=== PATIENT | female | born 1965 | race Caucasian/White ===

== ENCOUNTER 2018-08-21 05:06 | Emergency (ER) | payer OTHER ==
--- NOTE | 2018-08-21 07:35 | EDPHYS ---
Physician Documentation [facility] Name: Nora Irizarry Age: 52 yrs Sex: Female : 1965 Arrival Date: 08/21/2018 Time: 05:10 Bed 8 Private MD: Bashir Abarca ED Physician Elias Slade HPI: 08/21 06:25 This 52 yrs old Female presents to ER via Ambulatory with complaints of Fall pm1 Injury, Arm Injury. 06:25 Details of fall: The patient fell from an upright position, while walking. Onset: The pm1 symptoms/episode began/occurred just prior to arrival. Associated injuries: The patient sustained left elbow. The patient has not experienced similar symptoms in the past. The patient has not recently seen a physician. Patient was walking down stairs with her small dog in her arms. 4th stair from the bottom, she tripped and landed on her left elbow and then landed on her bottom. No head injury, headache, neck pain, LOC, or vomiting. 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 - Social history:: Smoking status: Patient/guardian denies using tobacco, Patient uses alcohol, occasionally. Patient/guardian denies using street drugs, IV drugs. - Ebola Screening: : Patient negative for fever greater than or equal to 101.5 degrees Fahrenheit, and additional compatible Ebola Virus Disease symptoms Patient denies exposure to infectious person Patient denies travel to an Ebola-affected area in the 21 days before illness onset. ROS: 06:44 Constitutional: Negative for fever, chills, and weight loss, Eyes: Negative for injury, pm1 pain, redness, and discharge, ENT: Negative for injury, pain, and discharge, Neck: Negative for injury, pain, and swelling, Cardiovascular: Negative for chest pain, palpitations, and edema, Respiratory: Negative for shortness of breath, cough, wheezing, and pleuritic chest pain, Abdomen/GI: Negative for abdominal pain, nausea, vomiting, diarrhea, and constipation, Back: Negative for injury and pain, : Negative for injury, bleeding, discharge, and swelling. 06:44 Skin: Negative for injury, rash, and discoloration, Neuro: Negative for headache, weakness, numbness, tingling, and seizure. 06:44 MS/extremity: Positive for pain, of the left elbow, Negative for decreased range of motion, deformity. Exam: 06:44 Constitutional: This is a well developed, well nourished patient who is awake, alert, pm1 and in no acute distress. Head/Face: Normocephalic, atraumatic. Eyes: Pupils equal round and reactive to light, extra-ocular motions intact. Lids and lashes normal. Conjunctiva and sclera are non-icteric and not injected. Cornea within normal limits. Periorbital areas with no swelling, redness, or edema. ENT: Nares patent. No nasal discharge, no septal abnormalities noted. Tympanic membranes are normal and external auditory canals are clear. Oropharynx with no redness, swelling, or masses, exudates, or evidence of obstruction, uvula midline. Mucous membranes moist. Neck: Trachea midline, no thyromegaly or masses palpated, and no cervical lymphadenopathy. Supple, full range of motion without nuchal rigidity, or vertebral point tenderness. No Meningismus. Chest/axilla: Normal chest wall appearance and motion. Nontender with no deformity. No lesions are appreciated. Cardiovascular: Regular rate and rhythm with a normal S1 and S2. No gallops, murmurs, or rubs. No pulse deficits. Respiratory: Lungs have equal breath sounds bilaterally, clear to auscultation and percussion. No rales, rhonchi or wheezes noted. No increased work of breathing, no retractions or nasal flaring. Abdomen/GI: Soft, non-tender, with normal bowel sounds. No distension or tympany. No guarding or rebound. No evidence of tenderness throughout. Back: No spinal tenderness. No costovertebral tenderness. Full range of motion. Skin: Warm, dry with normal turgor. Normal color with no rashes, no lesions, and no evidence of cellulitis. 06:44 Musculoskeletal/extremity: Extremities: grossly normal except: noted in the left elbow: tenderness, There is no evidence of abrasion, contusion, deformity, ecchymosis, erythema, laceration, swelling, patient able to pronate and supinate without difficulty, reports mild pain to tricep with movement. 06:44 Neuro: Orientation: is normal, Motor: is normal, moves all fours, strength is normal, strength is 5/5 in all extremities, Sensation: is normal, no obvious gross deficits. Vital Signs: 05:28 BP 114 / 51; Pulse 77; Resp 18; Temp 98.6(O); Pulse Ox 99% on R/A; Weight 52.16 kg (R); ao Height 5 ft. 2 in. (157.48 cm) (R); Pain 6/10; 07:00 BP 109 / 54; Pulse 71; Resp 14; Pulse Ox 100% ; bp 05:28 Body Mass Index 21.03 (52.16 kg, 157.48 cm) ao [place] Coma Score: 05:28 Eye Response: spontaneous(4). Verbal Response: oriented(5). Motor Response: obeys ao commands(6). Total: 15. Trauma Score (Adult): 05:28 Eye Response: spontaneous(1); Verbal Response: oriented(1); Motor Response: obeys ao commands(2); Systolic BP: > 89 mm Hg(4); Respiratory Rate: 10 to 29 per min(4); Rush Score: 15; Trauma Score: 12 MDM: 06:03 Patient medically screened. pm1 06:24 ED course: Patient offered pain medication, patient refused. Feels fine at the moment. pm1 06:51 Data reviewed: vital signs. Data interpreted: Pulse oximetry: on room air is 99 %. pm1 Interpretation: normal. 07:16 Differential diagnosis: contusion, fracture, sprain, strain, to left elbow. pm1 07:30 Counseling: I had a detailed discussion with the patient and/or guardian regarding: the pm1 historical points, exam findings, and any diagnostic results supporting the discharge/admit diagnosis, radiology results, the need for outpatient follow up, to return to the emergency department if symptoms worsen or persist or if there are any questions or concerns that arise at home. 08/21 05:53 Order name: XRAY Elbow LEFT 2 view; Complete Time: 08:12 ao 08/21 05:53 Order name: XRAY Shoulder LEFT 2 view; Complete Time: 08:12 ao 08/21 07:10 Order name: Sling; Complete Time: 07:34 pm1 Administered Medications: 07:39 CANCELLED (Patient Refused): [place] 5 mg-325 mg 1 tabs PO once pm1 07:50 Drug: Ibuprofen 600 mg Route: PO; bp 07:55 Follow up: Response: Medication administered at discharge. bp 07:50 Drug: Flexeril 10 mg Route: PO; bp 07:56 Follow up: Response: No adverse reaction bp Disposition: 08/21/18 07:34 Discharged to Home. Impression: Pain in left elbow. - Condition is Stable. - Discharge Instructions: Elbow Contusion, How to Use a Sling. - Prescriptions for Cyclobenzaprine 10 mg Oral Tablet - take 1 tablet by ORAL route every 8 hours As needed; 30 tablet. Diclofenac Sodium 75 mg Oral Tablet Sustained Release - take 1 tablet by ORAL route 2 times per day; 30 tablet. - Medication Reconciliation Form, Thank You Letter, Prescription Opioid Use form. - Follow up: Emergency Department; When: As needed; Reason: Worsening of condition. Follow up: Private Physician; When: 2 - 3 days; Reason: Recheck today's complaints, Continuance of care, Re-evaluation by your physician. - Problem is new. - Symptoms have improved. Signatures: Dispatcher [employer] EDCT Kristian Jacobsen RN RN Florian Ramirez NP SENIOR INTERNAL AUDITOR pm1 Bashir Haywood RN RN bp Corrections: (The following items were deleted from the chart) 07:39 07:29 [place] 5 mg-325 mg 1 tabs PO once ordered. pm1 pm1 07:59 07:34 08/21/2018 07:34 Discharged to Home. Impression: Pain in left elbow. Condition is bp Stable. Forms are Medication Reconciliation Form, Thank You Letter, Antibiotic Education, Prescription Opioid Use. Follow up: Emergency Department; When: As needed; Reason: Worsening of condition. Follow up: Private Physician; When: 2 - 3 days; Reason: Recheck today's complaints, Continuance of care, Re-evaluation by your physician. Problem is new. Symptoms have improved. pm1
--- NOTE | 2018-08-21 07:35 | ER ---
Nurse's Notes [facility] Name: Nora Irizarry Age: 52 yrs Sex: Female : 1965 Arrival Date: 08/21/2018 Time: 05:10 Bed 8 Private MD: Bashir Abarca Diagnosis: Pain in left elbow Presentation: 08/21 05:25 Presenting complaint: Patient states: Was just about to walk her dog and felt down from ao the stairs. Patient reports falling about four steps and hitting her left elbow. Care prior to arrival: None. Mechanism of Injury: Fall down 5 steps. Trauma event details: Injury occurred in the [facility]. 05:25 Acuity: RICKY 3 ao 05:25 Method Of Arrival: Ambulatory ao 05:32 Transition of care: patient was not received from another setting of care. Onset of ao symptoms was August 21, 2018 at 04:30. Risk Assessment: Do you want to hurt yourself or someone else? Patient reports no desire to harm self or others. Initial Sepsis Screen: Does the patient meet any 2 criteria? No. Patient's initial sepsis screen is negative. Does the patient have a suspected source of infection? No. Patient's initial sepsis screen is negative. Triage Assessment: 05:30 General: Appears in no apparent distress. uncomfortable, Behavior is calm, cooperative, ao appropriate for age. Pain: Complains of pain in left arm Pain currently is 7 out of 10 on a pain scale. EENT: No signs and/or symptoms were reported regarding the EENT system. Neuro: Level of Consciousness is awake, alert, obeys commands, Oriented to person, place, time, situation, Appropriate for age Moves all extremities. Full function Speech is normal, Facial symmetry appears normal, Intact. Cardiovascular: Capillary refill < 3 seconds Patient's skin is warm and dry. Respiratory: Airway is patent Respiratory effort is even, unlabored, Respiratory pattern is regular, agonal. GI: Abdomen is non-distended. : No signs and/or symptoms were reported regarding the genitourinary system. Derm: Skin is intact, Skin is pink, warm \T\ dry. normal, Skin temperature is warm. Musculoskeletal: Range of motion: intact in all extremities, intact in left shoulder, left elbow and left wrist. Injury Description: Fall. 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 - Social history:: Smoking status: Patient/guardian denies using tobacco, Patient uses alcohol, occasionally. Patient/guardian denies using street drugs, IV drugs. - Ebola Screening: : Patient negative for fever greater than or equal to 101.5 degrees Fahrenheit, and additional compatible Ebola Virus Disease symptoms Patient denies exposure to infectious person Patient denies travel to an Ebola-affected area in the 21 days before illness onset. Screenin:33 Abuse screen: Denies threats or abuse. Denies injuries from another. Nutritional ao screening: No deficits noted. Tuberculosis screening: No symptoms or risk factors identified. Fall Risk Fall in past 12 months (25 points). No secondary diagnosis (0 pts). No IV (0 pts). Ambulatory Aid- None/Bed Rest/Nurse Assist (0 pts). Gait- Normal/Bed Rest/Wheelchair (0 pts) Mental Status- Oriented to own ability (0 pts). Total Emery Fall Scale indicates No Risk (0-24 pts). Primary Survey: 05:32 NO uncontrolled hemorrhage observed. Breathing/Chest: Respiratory pattern: regular, ao Respiratory effort: spontaneous, Breath sounds: clear, bilaterally. Chest inspection: symmetrical rise and fall of the chest. Circulation: Cardiac rhythm: sinus rhythm Heart tones present. Pulses: palpable . Skin color: pink, Skin temperature: warm. Disability Alert. Exposure/Environment: All clothing and personal items were removed. Forensic evidence collection is not deemed to be indicated at this time. Items placed in patient belonging bag. Reassessment. 05:34 Reassessment Breathing/Chest. ao Secondary Survey: 07:00 HEENT: No deficits noted. Gastrointestinal: No deficits noted. : No deficits noted. bp Musculoskeletal: LEFT ELBOW. Assessment: 05:34 General: See triage assessment. ao 07:00 Reassessment: RECD REPORT FROM STACI PANDYA. 52YO WF S/P FALL ON STAIRS WITH LEFT ELBOW bp PAIN. XRAY RESULTS PENDING. NO OBVIOUS DEFORMITY. Vital Signs: 05:28 BP 114 / 51; Pulse 77; Resp 18; Temp 98.6(O); Pulse Ox 99% on R/A; Weight 52.16 kg (R); ao Height 5 ft. 2 in. (157.48 cm) (R); Pain 6/10; 07:00 BP 109 / 54; Pulse 71; Resp 14; Pulse Ox 100% ; bp 05:28 Body Mass Index 21.03 (52.16 kg, 157.48 cm) ao [place] Coma Score: 05:28 Eye Response: spontaneous(4). Verbal Response: oriented(5). Motor Response: obeys ao commands(6). Total: 15. Trauma Score (Adult): 05:28 Eye Response: spontaneous(1); Verbal Response: oriented(1); Motor Response: obeys ao commands(2); Systolic BP: > 89 mm Hg(4); Respiratory Rate: 10 to 29 per min(4); Rush Score: 15; Trauma Score: 12 ED Course: 05:10 Patient arrived in ED. es 05:10 Bashir Abarca MD is Private Physician. es 05:25 Staci Jacobsen RN is Primary Nurse. ao 05:28 Triage completed. ao 05:30 Arm band placed on right wrist. Patient placed in an exam room, on a stretcher, on ao pulse oximetry, Patient notified of wait time. 05:33 Patient has correct armband on for positive identification. Pulse ox on. NIBP on. ao 05:33 Patient maintains SpO2 saturation greater than 95% on room air. ao 05:33 Thermoregulation: warm blanket given to patient. ao 06:02 Florian Manjarrez NP is PHCP. pm1 06:02 Elias Slade MD is Attending Physician. pm1 06:59 X-ray completed. Portable x-ray completed in exam room. Patient tolerated procedure jb2 well. 07:04 XRAY Elbow LEFT 2 view In Process Unspecified. EDMS 07:04 XRAY Shoulder LEFT 2 view In Process Unspecified. EDMS 07:06 Report given to Rony RN. ao 07:34 Sling applied to left arm. jb1 07:58 No provider procedures requiring assistance completed. Patient did not have IV access bp during this emergency room visit. Administered Medications: 07:39 CANCELLED (Patient Refused): [place] 5 mg-325 mg 1 tabs PO once pm1 07:50 Drug: Ibuprofen 600 mg Route: PO; bp 07:55 Follow up: Response: Medication administered at discharge. bp 07:50 Drug: Flexeril 10 mg Route: PO; bp 07:56 Follow up: Response: No adverse reaction bp Intake: 07:00 PO: 0ml; Total: 0ml. bp Output: 07:00 Urine: 0ml; Total: 0ml. bp Outcome: 07:34 Discharge ordered by MD. pm1 07:57 Discharged to home ambulatory, with family. bp 07:57 Condition: stable 07:57 Patient's length of stay was not longer than 2 hours. 07:58 Instructed on discharge instructions, follow up and referral plans. medication usage. bp 07:59 Patient left the ED. bp Signatures: Dispatcher [employer] EDMS Bayron Ramirez jb1 Lianne Avila Jesse jb2 Staci Jacobsen, MUMTAZ RN Flroian Ramirez, JAVY MOTOR BOSS pm1 Bashir Haywood, RN RN bp
[2018-08-21] MEDS ORDERED: CYCLOBENZAPRINE 10 MG TAB ONE (07:57)
[2018-08-21] MEDS ORDERED: IBUPROFEN 200 MG TAB PO ONE (07:57)
--- NOTE | 2018-08-21 08:10 | RAD REPORT ---
EXAM DESCRIPTION: RAD - Elbow Left 2 View - 08/21/2018 7:04 am CLINICAL HISTORY: Fall, elbow pain COMPARISON: None. FINDINGS: No fracture is identified and no elevated posterior fat pad. There is no dislocation or periosteal reaction noted. No foreign body or other soft tissue abnormalit y. IMPRESSION: Negative left elbow examination.
--- NOTE | 2018-08-21 08:11 | RAD REPORT ---
EXAM DESCRIPTION: RAD - Shoulder Left 2 View - 08/21/2018 7:04 am CLINICAL HISTORY: Fall, shoulder pain COMPARISON: December 2013 TECHNIQUE: Internal and external rotation views of the left shoulder were obtained. FINDINGS: There is no fracture or dislocation. AC joint is normal in appearance. No acute or suspici ous findings. IMPRESSION: Negative two-view left shoulder examination.
== END 2018-08-21 07:59 | disposition home or self-care (01) ==
LOC: ER 05:06
DX: M25.522 Pain in left elbow (principal)
CPT/HCPCS: 99284

== ENCOUNTER 2023-04-10 10:42 | Emergency (ER) | payer OTHER ==
--- OUTSIDE RECORDS SUMMARY | 2023-04-10 10:45 | XMS REPORT | Continuity of Care Document ---
:1965 Author Organization [facility] t Address [address] [place] [address] Care Team Providers Name Role Phone PCP, PATIENT DOES NOT HAVE A Primary Care Physician UnavailLATOYA Lai Attending Clinician Unavailable Anastacio Reeder MD Attending Clinician Judd Lopez MD Attending Clinician Kenna Gonzales Attending Clinician Unavailable Silvina Acosta Attending Clinician Unknown, Attending Attending Clinician Unavailable SILVINA PARTIDA Attending Clinician Unavailable UNKNOWN, ATTENDING Attending Clinician Unavailable Payers Payer Name Policy Type Policy Number Effective Date Expiration Date Liyah hammond [employer] [id number] 2019 2019 00:00:00 00:00:00 [employer]-90 [id number] 2022 DEGREE BENEFITS 00:00:00 [facility] [id number] 2021 00:00:00 Problems Condition Condition Condition Status Onset Resolution Last Treating Co mments Source Name Details Category Date Date Treatment Clinician Date No known No known Disease Unive rs active active ity of problems problems [facility] Allergies, Adverse Reactions, Alerts Allergy Allergy Status Severity Reaction(s) Onset Inactive Treating Comm ents Source Name Type Date Date Clinician NO KNOWN Drug Active Univers ALLERGIE Class ity of S [facility] Social History Social Habit Start Date Stop Date Quantity Comments Source Sexual orientation 2022-10-17 Heterosexual Meth odist 20:58:34 (finding) Hospital History [facility] Health Alcohol Frequency History [facility] Health Alcohol Std Drinks [facility] History of Social 2022-11-27 2022-11-[address] function 00:00:00 00:00:00 Hospital Exposure to 2022-02-05 2022-02-15 Not sure [facility] SARS-CoV-2 (event) 00:00:00 14:25:00 Tobacco use and 2022-02-15 2022-02-15 Smokeless tobacco [facility] exposure 00:00:00 00:00:00 non-user Alcohol intake 2022-02-15 2022-02-15 .14 /d [facility] 00:00:00 00:00:00 Alcohol Comment 2022-02-15 2022-02-15 three drinks a year [facility] 00:00:00 00:00:00 Sex Ass[birth year] At [birth year] F Religion 00:00:00 00:00:00 Hospital Smoking Status Start Date Stop Date Source Tobacco smoking consumption unknown [facility] Never smoked tobacco [facility] Medications Ordered Filled Start Stop Current Ordering Indication Dosage Frequency Signature Comments Components Source Medication Medication Date Date Medication? Clinician (SIG) Name Name montelukast Yes montelukas [facility] (SINGULAIR) 11-[address] 10 mg 10:00: tablet [facility]osp[facility] tablet 02 l albuterol Yes ProAir Method i sulfate 11-[address] (ProAir 10:00: 90 [facility]ospita RespiClick) 02 mcg/actuat l 90 ion breath mcg/actuati activated on aerosol powdr breath activated Fluticasone Yes 1{puff} QD Inhale 1 [facility] -Umeclidin- 826 puff 1 Health Vilant 16:53: (one) time (Trelegy 14 each day. Ellipta) 100-62.5-25 MCG/INH aerosol powder ALPRAZolam Yes .5mg Q.5D Take 0.5 UT (Xanax) 0.5 8-26 mg by Health MG tablet 16:50: mouth 2 25 (two) times a day if needed. codeine-gua 2021- No 4647 5mL Take 5 mL Univers ifenesin 07-01 by mouth ity of 10-100 mg/5 00:00: 05:59 every 6 [place] mL oral 00 :00 (six) Medical solution hours as Branch needed for Cough for up to 7 days. Indication s: acute pain Vital Signs Vital Name Observation Time Observation Value Comments Source Systolic blood 2022-02-15 21:43:00 115 mm[Hg] [facility] pressure Diastolic blood 2022-02-15 21:43:00 69 mm[Hg] [facility] Heart rate 2022-02-15 21:43:00 50 /min [facility] Respiratory rate 2022-02-15 21:43:00 16 /min [facility] Body height 2022-02-15 21:43:00 157.5 cm [facility] Body weight 2022-02-15 21:43:00 53.615 kg [facility] BMI 2022-02-15 21:43:00 21.62 kg/m2 [facility] Systolic blood 2021-07-01 20:09:00 122 mm[Hg] [facility] Diastolic blood 2021-07-01 20:09:00 79 mm[Hg] Unive [facility] Heart rate 2021-07-01 20:09:00 83 /min [facility] Body temperature 2021-07-01 20:09:00 37.17 [facility] Respiratory rate 2021-07-01 20:09:00 18 /min [facility] Body height 2021-07-01 20:09:00 157.5 cm [facility] Body weight 2021-07-01 20:09:00 53.978 kg [facility] BMI 2021-07-01 20:09:00 21.77 kg/m2 [facility] Oxygen saturation in 2021-07-01 20:09:00 96 /min [facility] Arterial blood by [facility] Pulse oximetry Branch Procedures Procedure Date / Time Performing Clinician Source Performed XR FINGER 2+ VW BILATERAL 2022-11-27 14:59:27 Anastacio Reeder [facility] MI ARTHROCENTESIS 2022-11-27 14:40:00 Anastacio Reeder [facility] ASPIR&/INJ INTERM JT/BURS W/O US CHG FLUOROSCOPIC GUIDANCE 2022-11-27 14:40:00 Anastacio Reeder [facility] NEEDLE PLACEMENT ADD ON ECG 12-LEAD 2022-02-15 21:46:00 Judd Lopez [facility] Plan of Care Planned Activity Planned Date Details Comments Source Future Scheduled 2023-04-10 Screening for [facility] Test 10:44:42 malignant neoplasm of colon (procedure) [code = 043721211] Future Scheduled 2023-04-10 Screening for [facility] Test 10:44:42 malignant neoplasm of colon (procedure) [code = 319777655] Future Scheduled 2023-04-10 Screening for [facility] Test 10:44:42 malignant neoplasm of colon (procedure) [code = [id number]] Future Scheduled 2023-04-10 COVID-19 VACCINE [facility] Test 10:44:42 (#1) [code = COVID-19 VACCINE (#1)] Future Scheduled 2023-04-10 Hepatitis C [facility] ospital Test 10:44:42 screening (procedure) [code = 139105447] Future Scheduled 2023-04-10 Screening for [facility] Test 10:44:42 malignant neoplasm of cervix (procedure) [code = 286781372] Future Scheduled 2023-04-10 BREAST CANCER [facility] Test 10:44:42 SCREENING [code = BREAST CANCER SCREENING] Future Scheduled 2023-04-10 Screening for [facility] Test 10:44:42 malignant neoplasm of colon (procedure) [code = 566437005] Future Scheduled 2023-04-10 Screening for [facility] Test 10:44:42 malignant neoplasm of colon (procedure) [code = 440127137] Future Scheduled 2023-04-10 SHINGLES VACCINES Method [facility] Hospital Test 10:44:42 (1 of 2) [code = SHINGLES VACCINES (1 of 2)] Future Scheduled 2023-04-10 INFLUENZA VACCINE Method [facility] Hospital Test 10:44:42 (#1) [code = INFLUENZA VACCINE (#1)] Future Scheduled 2023-04-10 RSV VACCINES > 60 Method [facility] Hospital Test 10:44:42 YR (1 - 1-dose 60+ series) [code = RSV VACCINES > 60 YR (1 - 1-dose 60+ series)] Encounters Start End Encounter Admission Attending Care Care Encounter Source Date/Time Date/Time Type Type Clinicians Facility Department ID 2022-04-30 Outpatient [facility] [id number] [place] 14:48:58 [id number] [facility] 2023-04-15 2023-04-15 Outpatient EDNA VALERO [id number] Edna 14:00:00 14:00:00 LATOYA baker 2022-11-27 2022-11-27 Office [place], 1.2.840.1 [id number] Methodi 09:40:00 10:26:49 Visit Anastacio Rick [id number] 3.430.2.7 Hospit a .[id number] l .8 2022-11-27 2022-11-27 Outpatient [facility] [id number] [place] 00:00:00 00:00:[address] 2022-11-27 2022-11-27 Outpatient [facility] [id number] [place] 00:00:00 00:00:00 ANASTACIO Murphy [facility] 2022-11-27 2022-11-27 Travel 1.2.840.1 [id number] Methodi 00:00:00 00:00:[address] 3.430.2.7 0.2.7.3.698 spita .[id number] 084.8 l .8 2022-03-15 2022-03-15 Outpatient [facility] [id number] [place] 15:00:00 15:00:00 [facility] 2022-02-15 2022-02-15 Office CITLALLI Lopez [id number] [place] 16:20:00 18:00:04 Visit Judd CHRISTIANSON [id number] [facility] STATION 9.2.7.2.686 [facility] [id number] 2022-02-15 2022-02-15 Outpatient [facility] [id number] [place] 15:00:00 16:07:30 Health 2022-02-15 2022-02-15 Patient Kenna Gonzales [facility] [id number] [place] 00:00:00 00:00:00 Outreach Kenna Gonzales RUSSE [id number] Health [facility] 9.2.7.2.686 [facility] [id number] 2021-07-01 2021-07-01 Urgent Silvina Partida [facility] [id number] Univers 13:40:00 15:18:53 Care Unknown, [facility] 350.1.13.[address] [facility] 4.2.7.2.686 Joe as JAXSON?BLEA [id number] [address] MEDICAL OFFICE BUILDING 2021-07-01 2021-07-01 Outpatient R HELGA [facility] [id number] [facility] 13:40:00 15:18:53 [facility] 2021-06-29 2021-06-29 Outpatient R JOSH [facility] [id number] Univers 18:00:00 18:00:00 ATTENDING [facility] Results Test Description Test Time Test Comments Results Result Comments Source ECG 12 lead 2022-02-15 21:46:00 Test Item Value Reference Range Interpretation Comme nts Lab Interpretation (test code = 71335-5) Abnormal [facility]
[2023-04-10] MEDS ORDERED: CYCLOBENZAPRINE 10 MG TAB ONE (11:11)
[2023-04-10] MEDS ORDERED: KETOROLAC 30 MG/ML INJ ONE (11:11)
--- NOTE | 2023-04-10 12:01 | RAD REPORT ---
EXAM DESCRIPTION: RAD - Shoulder Right 2 View - 04/10/2023 11:09 am CLINICAL HISTORY: Right shoulder pain FINDINGS: No fracture or dislocation is seen. No significant bone or joint abnormality noted
--- NOTE | 2023-04-10 12:11 | EDPHYS ---
Physician Documentation [facility] Name: Nora Irizarry Age: 57 yrs Sex: Female : 1965 Arrival Date: 04/10/2023 Time: 10:42 Bed 12 Private MD: ED Physician Bg Mares HPI: 04/10 10:50 This 57 yrs old Female presents to ER via Ambulatory with complaints of Shoulder Injury.jh7 10:50 The patient or guardian complains of decreased range of motion, an injury. right jh7 shoulder. Context: The problem was sustained at home, resulted from Pushing off the car seat and shoulder popping. Onset: The symptoms/episode began/occurred 2 week(s) ago, and became worse yesterday. Associated signs and symptoms: Pertinent negatives: tingling. Patient reports that she injured her shoulder 2 weeks ago and again yesterday when she pushed off the car seat, experiencing a popping of her right shoulder. Reports decreased range of motion and posterior shoulder pain. No past medical problems.. Historical: - Allergies: 10:55 No Known Allergies; iw - Home Meds: 10:55 None [Active]; iw - PMHx: 10:55 Asthma; iw - PSHx: 10:55 tubal ligation; Appendectomy; iw ROS: 10:50 Constitutional: Negative for fever, chills, and weight loss, Eyes: Negative for injury, jh7 pain, redness, and discharge, Neck: Negative for injury, pain, and swelling, Cardiovascular: Negative for chest pain, palpitations, and edema, Respiratory: Negative for shortness of breath, cough, wheezing, and pleuritic chest pain, Back: Negative for injury and pain, Skin: Negative for injury, rash, and discoloration, Neuro: Negative for headache, weakness, numbness, tingling, and seizure, 10:50 MS/extremity: Positive for decreased range of motion, pain, of the right shoulder, 10:50 All other systems are negative, Exam: 10:50 Constitutional: This is a well developed, well nourished patient who is awake, alert, jh7 and in no acute distress. Head/Face: Normocephalic, atraumatic. Neck: Trachea midline, no thyromegaly or masses palpated, and no cervical lymphadenopathy. Supple, full range of motion without nuchal rigidity, or vertebral point tenderness. No Meningismus. Cardiovascular: Regular rate and rhythm with a normal S1 and S2. No gallops, murmurs, or rubs. Normal PMI, no JVD. No pulse deficits. Respiratory: Lungs have equal breath sounds bilaterally, clear to auscultation and percussion. No rales, rhonchi or wheezes noted. No increased work of breathing, no retractions or nasal flaring. Abdomen/GI: Soft, non-tender, with normal bowel sounds. No distension or tympany. No guarding or rebound. No evidence of tenderness throughout. Skin: Warm, dry with normal turgor. Normal color with no rashes, no lesions, and no evidence of cellulitis. Neuro: Awake and alert, GCS 15, oriented to person, place, time, and situation. Motor strength 5/5 in all extremities. Sensory grossly intact. Normal gait. 10:50 Musculoskeletal/extremity: Extremities: noted in the right posterior shoulder: decreased ROM, pain, ROM: limited active range of motion, in the right shoulder, limited active range of motion due to pain, Circulation is intact in all extremities. Perfusion: the extremity is normally perfused throughout, pink, warm, with brisk capillary refill, Sensation intact. Vital Signs: 10:54 BP 127 / 52; Pulse 64; Resp 16; Pulse Ox 100% on R/A; Weight 53.52 kg; Height 5 ft. 2 iw in. ; Pain 5/10; 10:54 Body Mass Index 21.58 (53.52 kg, 157.48 cm) iw 10:54 Pain Scale: Adult iw MDM: 10:46 Patient medically screened. [facility] 12:05 Differential diagnosis: humeral head fracture, DJD, tendonitis, Sprain. Data reviewed: [facility] vital signs, nurses notes, radiologic studies, plain films. I considered the following discharge prescriptions or medication management in the emergency department Medications were administered in the Emergency Department. See MAR. Independent interpretation of the following test(s) in the Emergency Department X-Ray: My interpretation is no acute changes. Historians other than the Patient: Spouse/Significant Other: . Counseling: I had a detailed discussion with the patient and/or guardian regarding the historical points, exam findings, and any diagnostic results supporting the discharge/admit diagnosis, the need for outpatient follow up, a orthopedic surgeon, if symptoms persist, to return to the emergency department if symptoms worsen or persist or if there are any questions or concerns that arise at home. Response to treatment: the patient's symptoms have mildly improved after treatment. 04/10 10:53 Order name: XRAY Shoulder RIGHT 2 view; Complete Time: 12:02 [facility] Administered Medications: 11:14 Drug: Cyclobenzaprine PO 10 mg PO once Route: PO; iw 11:15 Drug: Ketorolac IM 60 mg IM once Route: IM; Site: right gluteus; iw Disposition Summary: 04/10/23 12:10 Discharge Ordered Notes: Location: Home [facility] Problem: new [facility] Symptoms: have improved [facility] Condition: Stable [facility] Diagnosis - Other sprain of right shoulder joint [facility] Followup: [facility] - With: Private Physician - When: 2 - 3 days - Reason: Recheck today's complaints Discharge Instructions: - Discharge Summary Sheet [facility] - Shoulder Sprain [facility] - How to Use a Sling [facility] Forms: - Medication Reconciliation Form [facility] - Thank You Letter [facility] - Patient Portal Instructions [facility] - Leadership Thank You Letter [facility] Prescriptions: - Naprosyn 500 mg Oral Tablet - take 1 tablet ORAL route 2 times per day take with food; 30 tablet; Refills: 0, [facility] Product Selection Permitted - Zanaflex 4 mg Oral Tablet - take 1 tablet ORAL route every 8 hours As needed; 20 tablet; Refills: 0, [facility] Product Selection Permitted Signatures: Dispatcher [employer] Kristan Carolina RN RN Breonna Disla FNP FNP [facility] Corrections: (The following items were deleted from the chart) 10:55 10:55 Home Meds: Unable to obtain; [facility]
--- NOTE | 2023-04-10 12:11 | ER ---
Nurse's Notes [facility] Name: Nora Irizarry Age: 57 yrs Sex: Female : 1965 Arrival Date: 04/10/2023 Time: 10:42 Bed 12 Private MD: Diagnosis: Other sprain of right shoulder joint Presentation: 04/10 10:54 Chief complaint: Patient states: right shoulder injury X 2 weeks ago, re injured it iw yesterday now she can;t move it. Coronavirus screen: At this time, the client does not indicate any symptoms associated with coronavirus-19. Ebola Screen: Patient negative for fever greater than or equal to 101.5 degrees Fahrenheit, and additional compatible Ebola Virus Disease symptoms. Initial Sepsis Screen: Does the patient meet any 2 criteria? No. Patient's initial sepsis screen is negative. Does the patient have a suspected source of infection? No. Patient's initial sepsis screen is negative. Risk Assessment: Do you want to hurt yourself or someone else? Patient reports no desire to harm self or others. Onset of symptoms was March 27, 2023. 10:54 Method Of Arrival: Ambulatory iw 10:54 Acuity: RICKY 4 iw Historical: - Allergies: 10:55 No Known Allergies; iw - Home Meds: 10:55 None [Active]; iw - PMHx: 10:55 Asthma; iw - PSHx: 10:55 tubal ligation; Appendectomy; iw Vital Signs: 10:54 BP 127 / 52; Pulse 64; Resp 16; Pulse Ox 100% on R/A; Weight 53.52 kg; Height 5 ft. 2 iw in. ; Pain 5/10; 10:54 Body Mass Index 21.58 (53.52 kg, 157.48 cm) iw 10:54 Pain Scale: Adult iw ED Course: 10:46 Patient arrived in ED. mg5 10:46 Breonna Disla FNP [facility]. jh7 10:46 Bg Mares MD is Attending Physician. jh7 10:55 Triage completed. iw 10:55 Arm band placed on. iw 11:11 XRAY Shoulder RIGHT 2 view In Process Unspecified. EDMS 11:14 Kristan Fuller, RN is Primary Nurse. iw Administered Medications: 11:14 Drug: Cyclobenzaprine PO 10 mg PO once Route: PO; iw 11:15 Drug: Ketorolac IM 60 mg IM once Route: IM; Site: right gluteus; iw Outcome: 12:10 Discharge ordered by MD. britotn 12:27 Patient left the ED. iw Signatures: Dispatcher [employer] Kristan Carolina, RN RN iw Breonna Disla FNP [employer] jh7 Angelina Brown mg5 Corrections: (The following items were deleted from the chart) 10:55 10:55 Home Meds: Unable to obtain; iw iw
[2023-04-10 12:35] VITALS: BP 127/52; O2SAT 100
== END 2023-04-10 12:27 | disposition home or self-care (01) ==
LOC: ER 10:42
DX: S43.491A Other sprain of right shoulder joint, initial encounter (principal)
CPT/HCPCS: 96372; 99284